=== PATIENT | female | born 1955 | race Caucasian/White ===

== ENCOUNTER → 2021-08-31 09:22 | Outpatient (CLI) | payer OTHER, SELFPAY ==
--- NOTE | 2021-08-31 | DI.MRI.S_ITS ---
BREAST MRI OF BOTH BREASTS: 08/31/2021 CLINICAL: Breast cancer. TECHNIQUE: The patient was placed prone in a dedicated breast imaging coil. Precontrast axial STIR and 3D FLASH without fat saturation sequences were obtained. Both before and after bolus injection of contrast, sequential 1-minute axial 3D FLASH with fat saturation sequences for 3 time points, with subtraction images and maximum intensity projections (MIP's) generated. Delayed sagittal FLASH images with fat saturation were also obtained. 20cc Prohance IV contrast administered. Computer-aided detection, including computer algorithm analysis of MRI image data for lesion detection and characterization, pharmacokinetic analysis, with further physician review for interpretation, was performed. COMPARISON: [facility], , TOMOSYNTHESIS SCREENING BI, 01/28/2021, 7:54. Outside Film, , DIAGNOSTIC UNILATERAL DIGITAL BREAST TOMOSYNTHESIS LEFT, 07/13/2021, 14:39. [facility], , POST PROCEDURE MAMMOGRAM, 07/13/2021, 14:39. FINDINGS: Image quality: Excellent. There is mild, scattered, nodular background parenchymal enhancement. Right breast: No suspicious enhancing mass or non masslike enhancement. Left breast: There is an irregular and spiculated enhancing mass in the upper inner quadrant of the left breast around the 10 o'clock position at the posterior fat glandular interface. It measures roughly 2.0 x 1.3 x 1.2 cm. The superomedial margin is within 1 cm of the chest wall. There are associated biopsy changes including biopsy clip, small curvilinear nonenhancing seroma, and mild overlying skin change. Kinetic analysis demonstrates moderate initial enhancement with largely persistent delayed enhancement. Minimal washout. Additional, at the anterior fat glandular interface at the 11 o'clock position, there is irregular non masslike focus of enhancement without a definite mammographic correlate. Automated lesion analysis demonstrates this to measure approximately 1.2 x 0.8 cm. Enhancement kinetics are similar to the biopsied mass with moderate initial enhancement and persistent delayed enhancement. Incidental note made of a duct in the 4 o'clock position demonstrating T1 hyperintensity without significant dilatation and no postcontrast enhancement. Miscellaneous: Along the medial left chest wall, there is an ectatic vein draining the mass. A 4 mm intramammary lymph node is present, nonspecific. No other axillary or internal mammary chain adenopathy on either side. The heart appears mildly enlarged. There is trace atelectasis medially in the right middle lobe. The visible portions of the liver and chest are otherwise normal. IMPRESSION: KNOWN BIOPSY PROVEN MALIGNANCY 1. 2.0 cm known carcinoma in the 10 o'clock position of the posterior left breast. 2. 1.2 cm area of non masslike enhancement at the 11:00 o'clock position in the anterior left breast. Its enhancement kinetics are similar to the known low-grade carcinoma. Second-look ultrasound is recommended. 3. A 4 mm left intramammary lymph node is present. No other adenopathy. BIRADS 0, left breast ultrasound is recommended. COMMENT: The imaging literature indicates that a negative contrast breast MRI examination has a high sensitivity and a moderate specificity for detecting and excluding invasive carcinomas to a detection threshold of 3-5 mm; nonetheless, appropriate clinical and mammographic follow-up are recommended. MRI is not sensitive for detecting DCIS (ductal carcinoma in situ) and may not detect large invasive neoplasms that show only minimal enhancement such as mucinous carcinoma. If there are suspicious calcifications or clinically worrisome palpable masses, then biopsy should still be considered. Invasive neoplasms can be hidden by co-existent and benign enhancement caused by mastitis, hormone therapy effects, radiation therapy, , and recent biopsy or surgery. False positive examinations can occur in a number of circumstances, including breasts that have recently been subject to invasive procedures and those that contain atypical ductal hyperplasia, hormonally stimulated glandular tissue, fat necrosis, or radial scars. This exam was interpreted at Station ID: [id number]. Electronically Signed By: Eliza saavedra/:08/31/2021 14:07:24 Entry: - 09/01/2021 09:17:20 ACR BI-RADS Category 6: Known biopsy proven malignancy [id number]
== END ==
PROVIDERS: Referring Provider Surgery; Visit Provider Surgery
DX: C50.212 Malignant neoplasm of upper-inner quadrant of left female breast (principal); R59.0 Localized enlarged lymph nodes
CPT/HCPCS: 77049; A9579

== ENCOUNTER → 2021-10-20 13:47 | Outpatient (CLI) | payer OTHER, SELFPAY ==
--- NOTE | 2021-10-20 | DI.US.S_ITS ---
ULTRASOUND OF LEFT BREAST: 10/20/2021 CLINICAL: Additional evaluation requested from MRI. Comparison is made to exams dated: 08/31/2021 breast MRI - [facility], 07/13/2021 ultrasound biopsy, 07/13/2021 mammogram, 06/29/2021 ultrasound, 06/29/2021 mammogram, and 01/28/2021 mammogram - [facility]. Color flow and real-time ultrasound of the left breast were performed. Brambila scale images of the real-time examination were reviewed. There is a 0.3 cm x 0.2 cm x 0.2 cm oval cyst in the left breast at 10 o'clock anterior depth 4 cm from the nipple. This oval cyst is hypoechoic with a well-defined boundary. This correlates as an incidental finding. Color flow imaging demonstrates that there is no vascularity present. No sonographic abnormalities seen in the 11 o'clock region to explain previously describe anterior left breast non-mass enhancement. IMPRESSION: SUSPICIOUS OF MALIGNANCY There is no abnormality seen in the left breast to correspond with the suspicious breast MRI finding (non-mass enhancement) at 11 o'clock. Recommend further evaluation with MRI guided breast biopsy. The 0.3 cm x 0.2 cm x 0.2 cm oval simple cyst in the left breast 10 o'clock 4cm from the nipple is an incidental finding and is benign. Findings and recommendations were discussed with the patient during today's examination. This exam was interpreted at Station ID: [id number]. Electronically Signed By: Lai Cuenca M.D. at/:10/20/2021 15:53:13 letter sent: Biopsy Required Ultrasound BI-RADS: 4 Suspicious for malignancy
== END ==
PROVIDERS: Referring Provider Surgery; Visit Provider Surgery
DX: C50.912 Malignant neoplasm of unspecified site of left female breast (principal); N60.02 Solitary cyst of left breast
CPT/HCPCS: 76642

== ENCOUNTER → 2025-04-02 16:20 | Outpatient (CLI) | payer MEDICARE, OTHER, SELFPAY ==
--- NOTE | 2025-04-02 16:22 | DI.MRI.S_ITS ---
PROCEDURE: MR KNEE RT WO/W CON INDICATIONS: Right knee drainage and swelling after a prox fibular biopsy TECHNIQUE: Noncontrast sagittal PD fast spin echo and T2 fast spin echo with fat saturation, sagittal 3-D FLASH with fat saturation; coronal T1 spin echo and PD fast spin echo with fat saturation, and axial T1 spin echo and PD fast spin echo with fat saturation through the knee. Post-contrast axial, coronal, and sagittal T1 spin echo with fat saturation through the knee. COMPARISON: [facility], CT, CT BIOPSY BONE DEEP, 10/07/2024, 12:32. Outside Film, MR, MR KNEE RIGHT WITH/WITHOUT CONTRAST, 09/04/2024, 9:15. FINDINGS: Image quality: Excellent. Menisci: Peripheral displacement of medial meniscus bowing medial collateral ligament. Chronic complex tear involving the length of medial meniscus extending to both superior and inferior articulating surfaces. Peripheral displacement of lateral meniscus is also seen with complex oblique tear involving anterior horn of lateral meniscus extending to superior articulating surface. Cruciate ligaments: The anterior and posterior cruciate ligaments both appear thickened with intrasubstance T2 hyperintense signal. No full-thickness cruciate ligament rupture. Medial structures: The medial collateral ligament appears thickened with surrounding soft tissue edema. Visualized portions of the pes anserinus tendons appear normal. No abnormal bursal fluid. Lateral structures: The lateral collateral ligament, long and short heads of the biceps femoris tendon appear intact. The popliteus tendon appears thickened with intrasubstance T2 hyperintense signal extending to musculotendinous junction. Iliotibial band appears normal. Anterior structures: The quadriceps and patellar tendons appear intact. Patellar alignment is normal. Significant soft tissue edema and swelling along anterolateral aspect of proximal lower leg with a lobulated predominantly T2 hyperintense and T1 hypointense structure in subcutaneous soft tissue adjacent to anterior aspect of proximal fibula, and measures up to 3 x 5.7 x 7 cm in size series 8, image 38 and series 10, image 11. There is suggestion of internal debris. After IV contrast infusion, there is thin peripheral contrast enhancement and internal enhancement. No discrete solid enhancing nodule or mass is identified. Bones and cartilage: Marrow edema involving fibular head likely related to previous bone biopsy. Expansile T2 hyperintense and T1 hypointense lesion in fibular head is again seen. 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 Mild marrow edema in weight-bearing portion of medial and lateral tibial plateau as well as weight-bearing portion of medial femoral condyle are seen. Mild contrast enhancement in the area of edema is seen. No acute fracture or dislocation. No additional suspicious intraosseous lesion or area of abnormal intraosseous enhancement. Joint space: There is small joint effusion. No Chowdhury's cyst. No other area of abnormal soft tissue enhancement. IMPRESSION: 1. Interval development of 3 x 5.7 x 7 cm lobulated slightly complex appearing fluid collection in anterolateral proximal lower leg soft tissue adjacent to the anterior cortex of fibular head and show minimal peripheral and septal enhancement without definite enhancing solid component. Given previous history of biopsy in this area. Finding may represent a large organizing hematoma. Infected collection cannot be entirely excluded. Aspiration of the collection can be done for more definitive diagnosis. 2. Stable appearance of expansile, lobulated and heterogeneously T2 hyperintense signal lesion in fibular head with post biopsy changes. No new suspicious bony lesions. 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 No acute fracture or dislocation. 3. Complex tear involving the length of medial meniscus extending to both superior and inferior articulating surfaces. Complex oblique tear involving anterior horn of lateral meniscus extending to superior articulating surface. 4. Chronic moderate grade ACL and PCL sprain/intrasubstance partial-thickness tear. No full-thickness cruciate ligament rupture. 5. Low-grade partial-thickness tear involving popliteus tendon extending to musculotendinous junction. Dictated by: Darius Beyer M.D. on 04/03/2025 at 9:54 Approved by: Darius Beyer M.D. on 04/03/2025 at 10:20
== END ==
PROVIDERS: PCP Physician Assistant; Referring Provider Orthopaedic Surgery; Visit Provider Orthopaedic Surgery
DX: S83.511A Sprain of anterior cruciate ligament of right knee, initial encounter (principal); S83.521A Sprain of posterior cruciate ligament of right knee, initial encounter; S86.111A Strain of other muscle(s) and tendon(s) of posterior muscle group at lower leg level, right leg, initial encounter; M23.231 Derangement of other medial meniscus due to old tear or injury, right knee; M23.261 Derangement of other lateral meniscus due to old tear or injury, right knee; M25.861 Other specified joint disorders, right knee; M17.11 Unilateral primary osteoarthritis, right knee; M94.261 Chondromalacia, right knee
CPT/HCPCS: 73723; A9579